=== PATIENT | male | born 1930 | race Two or more races ===

== ENCOUNTER 2016-08-17 14:52 | Emergency (ER) | payer MEDICARE, OTHER ==
[2016-08-17 15:53] VITALS: TEMP 98.4
[2016-08-17 17:41] VITALS: BP 125/62; PULSE 61; RESP 14; O2SAT 98
== END 2016-08-17 17:35 | DRG 951 ==
LOC: ED 14:52
DX: Z02.2 Encounter for examination for admission to residential institution (principal); F10.21 Alcohol dependence, in remission
CPT/HCPCS: 99282; 99283